=== PATIENT | female | born 1965 | race Caucasian/White ===

== ENCOUNTER 2020-06-07 00:33 | Emergency (ER) | payer MEDICAID ==
[~2020-06-07] VITALS: Ht 154.9 cm; Wt 93.0 kg
[2020-06-07 01:05] LABS: BASOPHILS % (AUTO) 1 % (0-1); EOSINOPHILS % (AUTO) 4 % (1-7); LYMPHOCYTES % (AUTO) 18 % (22-44); MEAN CORPUSCULAR HEMOGLOBIN 23.1 pg (27.0-34.8); MEAN CORPUSCULAR HGB CONC 31.7 g/dL (32.4-35.8); MEAN PLATELET VOLUME 7.1 fL (7.4-10.4); MONOCYTES % (AUTO) 10 % (2-9); NEUTROPHILS % (AUTO) 67 % (42-75); PLATELET COUNT 378 x10^3/uL (130-400); RED BLOOD COUNT 4.29 x10^6/uL (3.82-5.3); RED CELL DISTRIBUTION WIDTH 16.9 % (9.6-15.2)
[2020-06-07 01:15] LABS: ALANINE AMINOTRANSFERASE 26 U/L (12-78); ALBUMIN 3.9 g/dL (3.4-5.0); ANION GAP 7 mmol/L (5-15); CALCIUM 9.2 mg/dL (8.5-10.1); CHLORIDE 107 mmol/L (98-107); CREATININE 1.24 mg/dL (0.55-1.02)
[2020-06-07 01:17] LABS: ALKALINE PHOSPHATASE 142 U/L (45-117); BILIRUBIN,TOTAL 0.9 mg/dL (0.2-1.0); TOTAL PROTEIN 7.5 g/dL (6.4-8.2)
--- NOTE | 2020-06-07 02:41 | NUR ---
instructor private: pt moved from lobby to room 19
[2020-06-07] MEDS ORDERED: MAALOX/HYOSCYAMINE/LIDOCAINE 45 ML BTL PO ONE (03:30)
[2020-06-07] MEDS ORDERED: HYDROcodone/APAP 5/325 TABLET PO ONE (03:30)
[2020-06-07] MEDS ORDERED: HYDROcodone/APAP 5/325 TABLET ONE (03:30)
[2020-06-07] MEDS ORDERED: MAALOX/HYOSCYAMINE/LIDOCAINE 45 ML BTL ONE (03:30)
--- NOTE | 2020-06-07 03:34 | NUR ---
PT AMBULATED TO ROOM. C/O PAIN TO LEFT GROIN, KNEE AND ANKLE. PT IN STRETCHER. PT TAKEN TO ULTRASOUND. PT [id number].
[2020-06-07 03:37] VITALS: BP 142/90
--- NOTE | 2020-06-07 03:41 | NUR ---
PT TAKEN TO XRAY. AWAITING ON ULTRASOUND TO BE READY. PT MEDICATED WITH PAIN MEDS. SEE EMAR.
--- NOTE | 2020-06-07 06:03 | NUR ---
ALL XRAYS READ, TO RECHECK PT. PT AWAKE AND ALERT, NO DISTRESS AT THIS TIME. ICE WATER PROVIDED.
== END 2020-06-07 06:21 | disposition home or self-care (01) ==
LOC: ED 05:48
DX: M16.12 Unilateral primary osteoarthritis, left hip (principal); R10.13 Epigastric pain; M25.552 Pain in left hip; R94.31 Abnormal electrocardiogram [ECG] [EKG]; K21.9 Gastro-esophageal reflux disease without esophagitis; Z85.3 Personal history of malignant neoplasm of breast
CPT/HCPCS: 36415; 80053; 83690; 85025; 93005; 99283; 99285